=== PATIENT | female | born 1985 | race Caucasian/White ===

== ENCOUNTER 2016-11-08 16:20 | Inpatient (IN) | payer OTHER ==
[~2016-11-08] VITALS: Ht 162.6 cm; Wt 120.7 kg
[~2016-11-08 16:20] MED LIST: DEXAMETHASONE SOD PHOSPHATE 4 MG/ML VIAL ONE; LR 1,000 ML IV.SOLN IV ONE; METOCLOPRAMIDE HCL 10 MG/2 ML VIAL ONE; MIDAZOLAM HCL 5 MG/5 ML VIAL ONE; MORPHINE SULFATE 10MG/10ML PF AMP ONE; NS IRRIG SOLN 1000 ML IR ONE; OXYTOCIN 10 UNIT/ML VIAL ONE
[2016-11-08 17:52] VITALS: BP 123/68; PULSE 82; RESP 18; TEMP 97.9
[2016-11-08] MEDS ORDERED: LR 1,000 ML IV ONE ×2 (18:15→20:18)
[2016-11-08] MEDS ORDERED: CEFAZOLIN 2 GM IVPB PREMIX 50 ML IV ONE (18:15)
[2016-11-08 18:37] LABS: BASOPHILS % (AUTO) 0.3 % (0.0-2.0); EOSINOPHILS # (AUTO) 0.1 K/uL (0.0-0.4); MEAN CORPUSCULAR HEMOGLOBIN 20 pg (27-31)
[2016-11-08 18:41] LABS: EOSINOPHILS % (AUTO) 0.5 % (0.0-4.0); HEMATOCRIT 32.8 % (36-48); HEMOGLOBIN 10.3 g/dL (12.0-16.0); LYMPHOCYTES # (AUTO) 2.2 K/uL (1.0-5.5); LYMPHOCYTES % (AUTO) 15.1 % (20.5-51.5); MEAN CORPUSCULAR HGB CONC 32 % (32-36); MEAN CORPUSCULAR VOLUME 65 fL (79.0-98.0); MONOCYTES # (AUTO) 0.5 K/uL (0.0-1.0); MONOCYTES % (AUTO) 3.7 % (1.7-9.3); NEUTROPHILS # (AUTO) 11.8 K/uL (1.8-7.7); NEUTROPHILS % (AUTO) 80.4 % (40.0-70.0); PLATELET COUNT (AUTO) 272 K/uL (130-430); RED BLOOD CELL COUNT(AUTO) 5.06 MIL/uL (4.2-6.2); RED CELL DISTRIBUTION WIDTH 14.6 % (9.0-15.0); WHITE BLOOD COUNT (AUTO) 14.6 K/uL (4.8-10.8)
[2016-11-08] MEDS ORDERED: CLINDAMYCIN 900 MG in D5W 100 ML IV SCH (18:45)
[2016-11-08 18:49] LABS: BILIRUBIN,URINE NEGATIVE (NEGATIVE); CLARITY/URINE HAZY (CLEAR); COLOR,URINE YELLOW (YELLOW); GLUCOSE,URINE NEGATIVE (NEGATIVE); KETONES,URINE 1+ (NEGATIVE); LEUKOCYTE ESTERASE ,URINE 3+ (NEGATIVE); NITRITE, URINE NEGATIVE (NEGATIVE); PROTEIN URINE NEGATIVE (NEGATIVE); UROBILINOGEN,URINE 0.2 (0.2-1.0)
[2016-11-08 19:08] LABS: BLOOD, URINE TRACE (NEGATIVE)
[2016-11-08 19:09] LABS: BACTERIA,URINE MODERATE /HPF (None Seen); RBC,URINE 0-3 /HPF (0-3); WBC,URINE 20-50 /HPF (0-3)
[2016-11-08 19:11] LABS: MUCUS,URINE 2+ /LPF (None Seen); YEAST,URINE Moderate /HPF (None Seen)
[2016-11-08] MEDS ORDERED: OXYTOCIN 10 UNIT/ML VIAL ONE (20:05)
[2016-11-08] MEDS ORDERED: NALBUPHINE HCL 10 MG/ML AMP IVP PRN (20:30)
[2016-11-08] MEDS ORDERED: NALOXONE HCL 0.4 MG/ML AMP (NARCAN) IVP PRN (20:30)
[2016-11-08] MEDS ORDERED: KETOROLAC TROMETHAMINE 30 MG VIAL IM PRN (20:30)
[2016-11-08] MEDS ORDERED: ePHEDrine sulfate 50 MG/ML VIAL IVP PRN (20:30)
[2016-11-08] MEDS ORDERED: fentaNYL CITRATE/PF 100 MCG/2 ML AMP IVP PRN (20:30)
[2016-11-08] MEDS ORDERED: ONDANSETRON HCL 4 MG/2 ML VIAL IVP PRN ×2 (20:30)
[2016-11-08] MEDS ORDERED: DIPHENHYDRAMINE INJ 50 MG/ML VIAL IVP PRN (20:30)
[2016-11-08] MEDS ORDERED: OXYTOCIN/NORMAL SALINE 1,000 ML IV ONE (20:59)
[2016-11-08] MEDS ORDERED: LR 1,000 ML IV SCH (20:59)
[2016-11-08 21:00] VITALS: BP 105/57
[2016-11-08] MEDS ORDERED: TEMAZEPAM 15 MG CAPSULE PO PRN (21:00)
[2016-11-08] MEDS ORDERED: RHO(D) IMMUNE GLOBULIN/MALTOSE 1500 UNITS/1.3 ML (WINHRO) IM PRN (21:00)
[2016-11-08] MEDS ORDERED: BISACODYL 10 MG/SUPPOSITORY RC PRN (21:00)
[2016-11-08] MEDS ORDERED: MEASLES,MUMPS&RUBELLA VACC/PF 12500 UNIT/0.5 ML VIAL SUBQ PRN (21:00)
[2016-11-08] MEDS ORDERED: LANOLIN 7 GM OINT. TP PRN (21:00)
[2016-11-08] MEDS ORDERED: ANUSOL 1 EA SUPP.RECT (PREPARATION H) RC PRN (21:00)
[2016-11-08] MEDS ORDERED: SENNOSIDES/DOCUSATE SODIUM 1 TAB TABLET(SENOKOT-S) PO PRN (21:00)
[2016-11-09 07:53] LABS: HEMATOCRIT 30.3 % (36-48); HEMOGLOBIN 9.1 g/dL (12.0-16.0)
[2016-11-09] MEDS: SIMETHICONE 80 MG TAB.CHEW PO PRN (14:27)
[2016-11-09] MEDS: OXYCODONE/ACETAMINOPHEN 5-325 TABLET PO PRN ×2 (14:28→21:22)
[2016-11-09 15:05] VITALS: Ht 162.6 cm; Wt 120.7 kg
[2016-11-09] MEDS ORDERED: COMMUNICATION ORDER XX ONE (16:00)
[2016-11-09] MEDS: IBUPROFEN 800 MG TABLET PO PRN (18:08)
[2016-11-09] MEDS ORDERED: LACTOBACILLUS RHAMNOSUS GG 1 CAP CAPSULE PO SCH (21:00)
[2016-11-10] MEDS: IBUPROFEN 800 MG TABLET PO PRN ×4 (01:16→17:49)
[2016-11-10] MEDS: SIMETHICONE 80 MG TAB.CHEW PO PRN (01:17)
[2016-11-10] MEDS: DOCUSATE SODIUM 100 MG CAPSULE PO PRN ×2 (01:17→12:17)
[2016-11-10] MEDS: OXYCODONE/ACETAMINOPHEN 5-325 TABLET PO PRN ×2 (01:17→20:06)
[2016-11-11] MEDS: DOCUSATE SODIUM 100 MG CAPSULE PO PRN ×2 (00:02→18:30)
[2016-11-11] MEDS: IBUPROFEN 800 MG TABLET PO PRN ×4 (00:02→18:29)
[2016-11-11] MEDS: OXYCODONE/ACETAMINOPHEN 5-325 TABLET PO PRN ×6 (03:40→21:05)
[2016-11-12] MEDS: IBUPROFEN 800 MG TABLET PO PRN ×2 (00:16→06:47)
[2016-11-12] MEDS: OXYCODONE/ACETAMINOPHEN 5-325 TABLET PO PRN ×4 (00:16→09:05)
[2016-11-12] MEDS: DOCUSATE SODIUM 100 MG CAPSULE PO PRN (09:04)
[2016-11-12] MEDS: SIMETHICONE 80 MG TAB.CHEW PO PRN (09:04)
== END 2016-11-12 11:49 | disposition home or self-care (01) | DRG 766 ==
LOC: SPU 16:20
PROVIDERS: ADMIT Obstetrics & Gynecology; ATTEND Obstetrics & Gynecology
PROC: 10D00Z1 Extraction of Products of Conception, Low, Open Approach (ICD-10-PCS; principal; 2016-11-08 19:45)
PROC: 30233S1 Transfusion of Nonautologous Globulin into Peripheral Vein, Percutaneous Approach (ICD-10-PCS; 2016-11-10)
DX: O32.1XX0 Maternal care for breech presentation, not applicable or unspecified (principal); Z37.0 Single live birth; Z3A.36 36 weeks gestation of pregnancy
CPT/HCPCS: 36415; 76815; 81000-TC; 85018-TC; 85025; 86592; 86870; 86886; 86900; 86901; 94760; J0690; J1100; J1200; J1885; J2250; J2274; J2590; J2765; J2790; J3490; J7060; J7120